=== PATIENT | female | born 1990 | race American Indian/Alaskan Native ===

== ENCOUNTER 2020-03-24 14:38 | Emergency (ER) | payer MEDICAID ==
[2020-03-24 15:48] VITALS: BP 148/95
[2020-03-24] MEDS ORDERED: FLUORESCEIN 1 MG STRIP OP STA (16:30)
--- NOTE | 2020-03-24 17:11 | Emergency Department Report ---
- General Chief complaint: Skin Rash Stated complaint: INFECTION Time Seen by Provider: 03/24/20 16:02 Source: patient Mode of arrival: Ambulatory Limitations: No Limitations - History of Present Illness MD complaint: rash - Related Data Previous Rx's Medication Instructions Recorded Last Taken Type predniSONE [Deltasone] 20 mg PO QDAY #5 tab 03/24/20 Unknown Rx valACYclovir [Valtrex] 500 mg PO BID #14 tab 03/24/20 Unknown Rx Allergies Allergy/AdvReac Type Severity Reaction Status Date / Time No Known Allergies Allergy Unverified 03/24/20 15:41 Abscess Boil HPI - HPI Chief Complaint: Skin Rash Stated Complaint: INFECTION Time Seen by Provider: 03/24/20 16:02 Home Medications: Previous Rx's Medication Instructions Recorded Last Taken Type predniSONE [Deltasone] 20 mg PO QDAY #5 tab 03/24/20 Unknown Rx valACYclovir [Valtrex] 500 mg PO BID #14 tab 03/24/20 Unknown Rx Allergies/Adverse Reactions: Allergies Allergy/AdvReac Type Severity Reaction Status Date / Time No Known Allergies Allergy Unverified 03/24/20 15:41 ED Review of Systems ROS: Stated complaint: INFECTION Other details as noted in HPI Comment: All other systems reviewed and negative ED Past Medical Hx - Past Medical History Previous Medical History?: No - Surgical History Past Surgical History?: No - Medications Home Medications: Home Medications Medication Instructions Recorded Confirmed Last Taken Type predniSONE [Deltasone] 20 mg PO QDAY #5 tab 03/24/20 Unknown Rx valACYclovir [Valtrex] 500 mg PO BID #14 tab 03/24/20 Unknown Rx ED Physical Exam - General Limitations: No Limitations General appearance: alert, in no apparent distress - Head Head exam: Present: atraumatic, normocephalic, other (rasj) - Expanded Head Exam Expanded 1 - Vesicular herpetic rash with some local erythema. The ophthalmological exam evaluation shows no dendrites with fluorescein evaluation. Rash does portend up to the eyelid but not involving the mucosal portion - Eye Eye exam: Present: normal appearance, PERRL Pupils: Present: normal accommodation - ENT ENT exam: Present: normal exam, normal orophraynx, mucous membranes moist - Neck Neck exam: Present: normal inspection, full ROM - Respiratory Respiratory exam: Present: normal lung sounds bilaterally. Absent: respiratory distress, wheezes, rales - Cardiovascular Cardiovascular Exam: Present: regular rate, normal rhythm. Absent: systolic murmur, diastolic murmur, rubs, gallop - GI/Abdominal GI/Abdominal exam: Present: soft, normal bowel sounds - Extremities Exam Extremities exam: Present: normal inspection - Back Exam Back exam: Present: normal inspection - Neurological Exam Neurological exam: Present: alert, oriented X3 - Psychiatric Psychiatric exam: Present: normal affect, normal mood - Skin Skin exam: Present: warm, dry, intact, normal color. Absent: rash ED Course Vital Signs 03/24/20 15:45 Temperature 98.1 F Pulse Rate 82 Respiratory 18 Rate Blood Pressure 148/95 O2 Sat by Pulse 100 Oximetry Critical care attestation.: If time is entered above; I have spent that time in minutes in the direct care of this critically ill patient, excluding procedure time. ED Disposition Disposition: DC- TO HOME OR SELFCARE Condition: Stable Instructions: Herpes Zoster (ED) Additional Instructions: Please let your FELT CUTTING MACHINE OPERATOR of the visit and the medications prescribed keep your vahid ointment on this Monday although they may want to see you soon. Prescriptions: predniSONE [Deltasone] 20 mg PO QDAY #5 tab valACYclovir [Valtrex] 500 mg PO BID #14 tab Referrals: KAMRAN MARK MD [Staff Physician] - 3-5 Days FELT CUTTING MACHINE OPERATOR, YOUR [Other] - 3-5 Days (Your current FELT CUTTING MACHINE OPERATOR keep the appointment you have this Monday)
== END 2020-03-24 17:15 | disposition home or self-care (01) ==
LOC: ED 14:38
DX: L08.9 Local infection of the skin and subcutaneous tissue, unspecified (principal); Z79.899 Other long term (current) drug therapy
CPT/HCPCS: 99282

== ENCOUNTER 2020-05-05 19:23 | Outpatient (CLI) | payer MEDICAID ==
[2020-05-05] MEDS ORDERED: LACTATED RINGERS 1,000 ML ONE (20:38)
[2020-05-05 20:45] VITALS: BP 140/79
[2020-05-05 21:04] LABS: Hemoglobin 11.1 gm/dl (10.1-14.3); Mean Corpuscular HGB Conc 34 % (30-34); Mean Corpuscular Volume 84 fl (79-97); Platelet Count 189 K/mm3 (140-440); Red Blood Count 3.93 M/mm3 (3.65-5.03); Red Cell Distribution Width 15.5 % (13.2-15.2)
[2020-05-05 21:09] LABS: Alanine Aminotransferase 12 units/L (7-56); Uric Acid 6.4 mg/dL (3.5-7.6)
[2020-05-05 21:19] LABS: Bacteria,Urine 1+ /HPF (Negative); Bilirubin,Urine NEG (Negative); Blood,Urine MOD (Negative); Color,Urine Yellow (Yellow); Mucus,Urine 1+ /HPF
== END 2020-05-05 22:08 | disposition home or self-care (01) ==
LOC: TRG 19:23 → APU 19:33 → TRG 22:08
PROVIDERS: ATTEND Obstetrics & Gynecology
DX: O26.893 Other specified pregnancy related conditions, third trimester (principal); R42 Dizziness and giddiness; Z3A.32 32 weeks gestation of pregnancy
CPT/HCPCS: 36415; 81001; 82565; 83615; 84450; 84460; 84550; 85027

== ENCOUNTER 2021-08-13 12:57 | Emergency (ER) | payer MEDICAID ==
[2021-08-13] MEDS ORDERED: KETOROLAC 10 MG TAB PO ONE (20:06)
[2021-08-13] MEDS ORDERED: dexAMETHasone 20 MG/5 ML VIAL IM ONE (20:06)
--- NOTE | 2021-08-13 20:10 | Emergency Department Report ---
ED ENT HPI - General Chief complaint: Sore Throat Stated complaint: SORE THROAT Time Seen by Provider: 08/13/21 20:00 Source: patient Mode of arrival: Ambulatory Limitations: No Limitations - History of Present Illness Initial comments: 30-year-old female presents to the ER today with complaints of sore throat. She reports that her throat feels swollen and she been having difficulty swallowing due to the pain. She also reports some rhinorrhea nasal congestion and a mild cough. She denies any apparent fever or chills. She denies any ill contacts. She denies any trismus or drooling. She reports no other symptoms at this time MD complaint: sore throat -: days(s) (2) - Related Data Previous Rx's Medication Instructions Recorded Last Taken Type predniSONE [Deltasone] 20 mg PO QDAY #5 tab 03/24/20 Unknown Rx valACYclovir [Valtrex] 500 mg PO BID #14 tab 03/24/20 Unknown Rx Acetaminophen with Codeine 5 ml PO Q4HR PRN #100 ml 08/13/21 Unknown Rx [Acetaminop-Codeine 120-12 mg/5] Amoxicillin [Trimox CAP] 500 mg PO Q8H #30 capsule 08/13/21 Unknown Rx Ibuprofen [Motrin] 600 mg PO Q8H PRN #30 tablet 08/13/21 Unknown Rx Allergies Allergy/AdvReac Type Severity Reaction Status Date / Time No Known Allergies Allergy Unverified 03/24/20 15:41 ED Dental HPI - General Chief complaint: Sore Throat Stated complaint: SORE THROAT Time Seen by Provider: 08/13/21 20:00 Source: patient Mode of arrival: Ambulatory Limitations: No Limitations - Related Data Previous Rx's Medication Instructions Recorded Last Taken Type predniSONE [Deltasone] 20 mg PO QDAY #5 tab 03/24/20 Unknown Rx valACYclovir [Valtrex] 500 mg PO BID #14 tab 03/24/20 Unknown Rx Acetaminophen with Codeine 5 ml PO Q4HR PRN #100 ml 08/13/21 Unknown Rx [Acetaminop-Codeine 120-12 mg/5] Amoxicillin [Trimox CAP] 500 mg PO Q8H #30 capsule 08/13/21 Unknown Rx Ibuprofen [Motrin] 600 mg PO Q8H PRN #30 tablet 08/13/21 Unknown Rx Allergies Allergy/AdvReac Type Severity Reaction Status Date / Time No Known Allergies Allergy Unverified 03/24/20 15:41 ED Review of Systems ROS: Stated complaint: SORE THROAT Other details as noted in HPI Comment: All other systems reviewed and negative Constitutional: denies: chills, fever ENT: throat pain, congestion, other (rhinnorrhea ). denies: dental pain, hearing loss, epistaxis Respiratory: cough (mild ) Cardiovascular: denies: chest pain, palpitations Endocrine: no symptoms reported Gastrointestinal: denies: abdominal pain, nausea, diarrhea, constipation, hematemesis, hematochezia Genitourinary: denies: urgency, dysuria, frequency, hematuria, discharge, abnormal menses, dyspareunia Musculoskeletal: denies: back pain, joint swelling, arthralgia Skin: denies: rash, lesions, change in color, change in hair/nails, pruritus Neurological: denies: headache, weakness, numbness, paresthesias, confusion, abnormal gait, vertigo Psychiatric: denies: anxiety, depression, auditory hallucinations, visual hallucinations, homicidal thoughts, suicidal thoughts Hematological/Lymphatic: denies: easy bleeding, easy bruising ED Past Medical Hx - Past Medical History Hx Hypertension: No Hx Diabetes: No Hx Deep Vein Thrombosis: No Hx Renal Disease: No Hx Sickle Cell Disease: No Hx Seizures: No Hx Asthma: No - Social History Smoking Status: Never Smoker - Medications Home Medications: Home Medications Medication Instructions Recorded Confirmed Last Taken Type predniSONE [Deltasone] 20 mg PO QDAY #5 tab 03/24/20 Unknown Rx valACYclovir [Valtrex] 500 mg PO BID #14 tab 03/24/20 Unknown Rx Acetaminophen with Codeine 5 ml PO Q4HR PRN #100 ml 08/13/21 Unknown Rx [Acetaminop-Codeine 120-12 mg/5] Amoxicillin [Trimox CAP] 500 mg PO Q8H #30 capsule 08/13/21 Unknown Rx Ibuprofen [Motrin] 600 mg PO Q8H PRN #30 tablet 08/13/21 Unknown Rx ED Physical Exam - General Limitations: No Limitations General appearance: alert, in no apparent distress - Head Head exam: Present: atraumatic, normocephalic, normal inspection - Eye Eye exam: Present: normal appearance, PERRL, EOMI Pupils: Present: normal accommodation - ENT ENT exam: Present: mucous membranes moist - Expanded ENT Exam Expanded Mouth exam: Present: normal external inspection. Absent: drooling, trismus, muffled voice, tongue normal, tongue elevation, laceration Throat exam: Positive: tonsillar erythema, tonsillomegaly, tonsillar exudate. Negative: R peritonsillar mass, L peritonsillar mass - Neck Neck exam: Present: normal inspection, full ROM. Absent: meningismus - Respiratory Respiratory exam: Present: normal lung sounds bilaterally. Absent: respiratory distress, wheezes, rales, rhonchi - Cardiovascular Cardiovascular Exam: Present: regular rate, normal rhythm, normal heart sounds - GI/Abdominal GI/Abdominal exam: Present: soft. Absent: distended, tenderness, guarding, rebound - Neurological Exam Neurological exam: Present: alert, oriented X3, CN II-XII intact, normal gait - Skin Skin exam: Present: intact ED Course Vital Signs 08/13/21 08/13/21 08/13/21 14:49 20:16 20:31 Temperature 98.8 F 99.1 F Pulse Rate 99 H 90 Respiratory 18 14 18 Rate Blood Pressure 171/100 175/82 [Right] O2 Sat by Pulse 99 100 Oximetry ED Medical Decision Making - Medical Decision Making The patient is comfortably and is well-appearing and in no acute distress. There is no respiratory distress, no stridor and the mental status is normal. The neurological exam is normal, there is no significant signs of dehydration, and the patient is able to tolerate p.o. fluids. The history, exam, diagnostic testing and the patient current condition does not suggest an infectious process such as meningitis, retropharyngeal abscess, epiglottitis, peritonsillar abscess, Liya's angina, mastoiditis, orbital cellulitis, periorbital cellulitis, severe meningitis, malignant otitis externa, sepsis or any significant pathology warranting further testing, continued ED treatment, admission, consultation or any other evaluation at this time. Patient be treated clinically for strep. The patient condition is stable and appropriate for discharge. Critical care attestation.: If time is entered above; I have spent that time in minutes in the direct care of this critically ill patient, excluding procedure time. ED Disposition Clinical Impression: Exudative tonsillitis, URI (upper respiratory infection) Disposition: HOME / SELF CARE / HOMELESS Is pt being admited?: No Does the pt Need Aspirin: No Condition: Stable Instructions: Tonsillitis, [id number], Upper Respiratory Infection, Adult, [id number] Additional Instructions: I recommend taking the amoxicillin, the tylenol 3 and the motrin to help with pain. Drink lots of fluids and soft diet. Follow up with PCP. Return to ED if worse. Prescriptions: Acetaminophen with Codeine [Acetaminop-Codeine 120-12 mg/5] 5 ml PO Q4HR PRN #100 ml PRN Reason: Pain , Severe (7-10) Ibuprofen [Motrin] 600 mg PO Q8H PRN #30 tablet PRN Reason: Pain Amoxicillin [Trimox CAP] 500 mg PO Q8H #30 capsule Referrals: PRIMARY CARE, [Referring] - 3-5 Days Forms: Work/School Release Form(ED) Time of Disposition: 20:11
[2021-08-13 20:32] VITALS: BP 175/82
== END 2021-08-13 20:31 | disposition home or self-care (01) ==
LOC: ED 12:57
DX: J03.90 Acute tonsillitis, unspecified (principal); J06.9 Acute upper respiratory infection, unspecified; Z79.899 Other long term (current) drug therapy
CPT/HCPCS: 87116; 87430; 96372; 99283; J1100